=== PATIENT | male | born 1935 | race Caucasian/White ===

== ENCOUNTER 2022-10-05 09:04 | Day surgery (SDC) | payer OTHER ==
[~2022-10-05] VITALS: Ht 180.3 cm; Wt 74.8 kg
[~2022-10-05 09:04] MED LIST: CEFAZOLIN SOD 1 GM in D5W 50 ML IV ONE
[2022-10-05] MEDS ORDERED: SEVOFLURANE 15 MIN GAS INH ONE (12:30)
[2022-10-05] MEDS ORDERED: LR 1,000 ML IV.SOLN IV ONE (12:30)
[2022-10-05] MEDS ORDERED: PROPOFOL 200MG/ 20ML VIAL (DIPRIVAN) IV ONE (12:30)
[2022-10-05] MEDS ORDERED: ONDANSETRON HCL 4 MG/2 ML VIAL IVP ONE (12:30)
[2022-10-05] MEDS ORDERED: NS 50 ML BAG IV ONE (12:30)
[2022-10-05] MEDS ORDERED: DEXAMETHASONE SOD PHOSPHATE 4 MG/ML VIAL IVP ONE (12:30)
[2022-10-05] MEDS ORDERED: fentaNYL CITRATE/PF 100 MCG/2 ML AMP IVP ONE (12:30)
[2022-10-05] MEDS ORDERED: CEFAZOLIN 2 GM IVPB PREMIX 50 ML IV ONE (12:30)
[2022-10-05] MEDS ORDERED: NS IRRIG SOLN 1000 ML IR ONE (12:30)
[2022-10-05] MEDS ORDERED: BUPIVACAINE /PF 0.5% 30 ML VIAL INJ ONE (12:30)
[2022-10-05] MEDS ORDERED: MIDAZOLAM HCL 5 MG/5 ML VIAL IVP ONE (12:30)
[2022-10-05] MEDS ORDERED: LABETALOL 100 MG/ 20ML VIAL IVP PRN (13:15)
[2022-10-05] MEDS ORDERED: LR 1,000 ML IV SCH (13:15)
[2022-10-05] MEDS ORDERED: METOCLOPRAMIDE HCL 10 MG/2 ML VIAL IVP PRN (13:15)
[2022-10-05] MEDS ORDERED: HYDROmorphone 1 MG/ML INJ. CARTRIDGE IVP PRN ×2 (13:15)
[2022-10-05] MEDS ORDERED: MEPERIDINE HCL/PF 25 MG/ML DISP.SYRIN IVP PRN (13:15)
[2022-10-05] MEDS ORDERED: ACETAMINOPHEN I.V. 1000 MG 100 ML IV ONE (13:19)
[2022-10-05] MEDS ORDERED: D5/0.45 NS 1,000 ML IV SCH (13:45)
[2022-10-05] MEDS ORDERED: HYDROcodone/ACETAMIN 5-325 MG TAB (NORCO/ VICODIN) PO PRN ×2 (13:45)
[2022-10-05 16:23] VITALS: BP_SYST 122
== END 2022-10-05 16:10 | disposition home or self-care (01) ==
LOC: SDS 09:04 → SMU 09:05 → SDS 16:10
PROVIDERS: ATTEND Colon & Rectal Surgery
DX: K40.30 Unilateral inguinal hernia, with obstruction, without gangrene, not specified as recurrent (principal); I25.2 Old myocardial infarction; I48.91 Unspecified atrial fibrillation; G40.909 Epilepsy, unspecified, not intractable, without status epilepticus; E78.00 Pure hypercholesterolemia, unspecified; I12.9 Hypertensive chronic kidney disease with stage 1 through stage 4 chronic kidney disease, or unspecified chronic kidney disease; N18.2 Chronic kidney disease, stage 2 (mild); Z79.899 Other long term (current) drug therapy; Z20.822 Contact with and (suspected) exposure to COVID-19
CPT/HCPCS: 36415 ×2; 49507; 87426; U0003; C1781; J3490; J0690 ×2; J1100; J2250; J2405; J2704; J3010; J7060; J7120; J0131

== ENCOUNTER 2023-04-01 09:10 | Day surgery (SDC) | payer OTHER ==
[~2023-04-01] VITALS: Ht 182.9 cm; Wt 72.6 kg
[~2023-04-01 09:10] MED LIST changes: -CEFAZOLIN SOD 1 GM in D5W 50 ML IV ONE; +ceFAZolin SODIUM 2 GM in D5W 100 ML IV ONE
[2023-04-01] MEDS ORDERED: HYDROcodone/ACETAMIN 5-325 MG TAB (NORCO/ VICODIN) PO PRN (15:30)
[2023-04-01] MEDS ORDERED: ACETAMINOPHEN 325 MG TABLET PO PRN ×2 (15:30)
[2023-04-01] MEDS ORDERED: MORPHINE 4 MG INJ. 4 MG/ML VIAL IVP PRN ×4 (15:30→15:45)
[2023-04-01] MEDS ORDERED: ONDANSETRON HCL 4 MG/2 ML VIAL IVP PRN ×2 (15:30→15:45)
[2023-04-01] MEDS ORDERED: BUPIVACAINE /PF 0.25% 30 ML VIAL INJ ONE (15:38)
[2023-04-01] MEDS ORDERED: SEVOFLURANE 15 MIN GAS INH ONE (15:38)
[2023-04-01] MEDS ORDERED: WATER FOR IRRIGATION,STERILE 1,000 ML IRRIG.SOLN IR ONE (15:38)
[2023-04-01] MEDS ORDERED: NS IRRIG SOLN 1000 ML IR ONE (15:38)
[2023-04-01] MEDS ORDERED: LR 1,000 ML IV.SOLN IV ONE (15:38)
[2023-04-01] MEDS ORDERED: ONDANSETRON HCL 4 MG/2 ML VIAL ONE (15:38)
[2023-04-01] MEDS ORDERED: PROPOFOL 200MG/ 20ML VIAL (DIPRIVAN) IV ONE (15:38)
[2023-04-01] MEDS ORDERED: ePHEDrine sulfate 50 MG/ML VIAL ONE (15:38)
[2023-04-01] MEDS ORDERED: METOCLOPRAMIDE HCL 10 MG/2 ML VIAL IVP PRN (15:45)
[2023-04-01 17:16] VITALS: BP_SYST 124
== END 2023-04-01 17:40 | disposition home or self-care (01) ==
LOC: SMU 09:10 → SDS 09:10
PROVIDERS: ATTEND Surgery
DX: C44.529 Squamous cell carcinoma of skin of other part of trunk (principal); I10 Essential (primary) hypertension; I48.91 Unspecified atrial fibrillation; G40.909 Epilepsy, unspecified, not intractable, without status epilepticus; Z95.0 Presence of cardiac pacemaker; E78.5 Hyperlipidemia, unspecified; Z79.899 Other long term (current) drug therapy
CPT/HCPCS: 87081; 38525; 11606; 12032; 38900; 78195; 88304; 88307; 88341; 88342; A9541; J3490; J2405; J2704; J7060; J7120